=== PATIENT | female | born 1980 | race Caucasian/White ===

== ENCOUNTER 2016-08-19 08:24 | Emergency (ER) | payer MEDICAID ==
[~2016-08-19] VITALS: Wt 60.0 kg
[2016-08-19] MEDS ORDERED: KETOROLAC 30 MG INJ IM STA (09:03)
[2016-08-19] MEDS ORDERED: ACET500C5 PO (10:32)
--- NOTE | 2016-08-19 10:37 | ERD ---
ER Documentation Chief Complaint Date/Time DATE: 08/19/16 TIME: 10:33 Chief Complaint non trauma headache for 3 wks no neuro def HPI 36-year-old female complaining of headache daily for 3 weeks. She also complained of feeling dizzy. She described dizziness as feeling like she is drunk, about to fall when she walks. The dizziness is worse with head movement , she has spinning sensation. She reports nausea but no vomiting. Denies head injuries or recent illness. Denies weakness and numbness. Denies neck pain or ear pain. ROS All systems reviewed and are negative except as per history of present illness. Medications Home Meds Active Scripts Acetaminophen* (Tylophen*) 500 Mg Capsule, 1 CAP PO Q6H Y for PAIN AND OR ELEVATED TEMP, #20 CAP Prov:BAILEYJT. GRAVES REGISTRATION SPECIALIST 08/19/16 Allergies Allergies: Coded Allergies: Penicillins (Verified Allergy, Unknown, RASHES, 11/03/06) PMhx/Soc Medical and Surgical Hx: pt denies Medical Hx, pt denies Surgical Hx Hx Alcohol Use: No Hx Substance Use: No Smoking Status: Never smoker Physical Exam Vitals Vital Signs Date Time Temp Pulse Resp B/P Pulse Ox O2 Delivery O2 Flow Rate FiO2 08/19/16 08:32 97.6 91 21 119/71 98 Physical Exam General impression: Well-developed, well-nourished. Alert, oriented, in no acute distress Head: Normocephalic, atraumatic. Eyes: PERRL, EOM normal. Horizontal nystagmus noted bilaterally. Conjunctiva not injected. ENT: External canals clear. TM's pearly hall. Nasal mucosa, oral mucosa and oropharynx are normal. Neck: Supple, nontender. No lymphanopathy. No nuchal rigidity. Bilateral sternocleidomastoid and upper trapezius muscle spasm. Respiration: Normal respiratory effort. Lungs clear to auscultate bilaterally. No wheezes, rales or rhonchi. Cardiovascular: Regular rate and rhythm. No murmurs or extra heart sounds. Abdomen: Abdomen normal to inspection. Nontender. No masses or organomegaly. Bowel sounds normal. Neuro: Mental status normal, speech normal. TAKER OUT II-XII intact. Normal sensation and strength in all 4 extremities. No focal weakness noted. Skin: Normal turgor. No rash or lesions. Psych: Normal mood and affect. Results 24 hrs Current Medications Medications (Trade) Dose Ordered Sig/Royal Route PRN Reason Start Time Stop Time Status Last Admin Dose Admin Ketorolac Tromethamine (Toradol) 30 mg ONCE STAT IM 08/19/16 09:03 08/19/16 09:05 DC 08/19/16 09:40 Procedures/MDM Well-appearing 36-year-old female presented to ED with headache and vertigo 3 weeks. Toradol given to the patient in the ED, patient reports resolution headache after Toradol. Patient also has bilateral horizontal nystagmus, and positive Ford-Hallpike bilaterally. Likely patient also has benign positional vertigo. Low suspicion for central causes of vertigo. Patient is advised to follow-up with her PCP and request for physical therapy referral. Patient appears well, stable for discharge and outpatient management. Medical decision making shared with patient and family. Education provided to patient and family. Patient and family expressed understanding of the plan. Medications on discharge: Tylenol. Follow-up: Primary care provider in 2-3 days or return to ED if worse. Departure Diagnosis: Primary Impression: Headache Headache type: tension-type Headache chronicity pattern: acute headache Intractability: not intractable Qualified Code: G44.209 - Acute non intractable tension-type headache Additional Impression: BPV (benign positional vertigo) Laterality: bilateral Qualified Code: H81.13 - BPV (benign positional vertigo), bilateral Condition: Stable Patient Instructions: Self-Care for Headaches, Benign Positional Vertigo [facility] Usted se del toro hecho un examen mdico de control que le indica que no est en elva condicin que requiera tratamiento urgente en el Departamento de Emergencia. Un estudio ms profundo y el tratamiento de tamayo condicin pueden esperar sin ningn riesgo hasta que usted sea atendida/o en el consultorio de tamayo mdico o elva cl johny. Es responsabilidad suya arreglar elva bala para el seguimiento del brigitte. MANEJO DE CONDICIONES NO URGENTES EN EL FUTURO 1) Si usted tiene un mdico de atencin primaria: Usted debera llamar a tamayo mdico de atencin primaria antes de venir al departamento de emergencia. Despus de las horas de consultorio, tamayo doctor o tamayo asociado/a est disponible por telfono. El mdico o enfermero de vaishnavi en el servicio telefnico puede asesorarle por ravi medio para atender el problema, o brigitte contrario se puede programar elva bala. 2) Si usted no tiene un mdico de atencin primaria: Llame al mdico o clnica de referencia que aparece abajo padmaja las horas de consultorio para hacer elva bala para que le vean. CLINICAS: [place] [id number] [phone] [facility] [phone] [place] [id number] [phone] [place] [address] [phone] [facility] [place] [address] [phone] [facility]. [phone] [address] Additional Instructions: Llame al doctor MAANA y tanner elva BALA PARA DENTRO DE 2-3 COCHRAN.Dgale a la secretaria que nosotros le instruimos hacer esta bala.Avise o llame si tamayo condicin se empeora antes de la bala. Regresa aqui si peor o no mejor. JT AVALOS NP Aug 19, 2016 10:37
== END 2016-08-19 10:46 | disposition home or self-care (01) ==
LOC: FTE 08:24
DX: G44.209 Tension-type headache, unspecified, not intractable (principal); H81.13 Benign paroxysmal vertigo, bilateral
CPT/HCPCS: 96372; J1885; Z7502